=== PATIENT | female | born 1985 | race Caucasian/White ===

== ENCOUNTER 2017-11-12 17:34 | Emergency (ER) | payer OTHER, MEDICAID ==
[~2017-11-12] VITALS: Ht 172.7 cm; Wt 126.5 kg
[~2017-11-12 17:34] MED LIST: AMOXICILLIN875 MG PO; BACTRIM DS TAB1 EACH PO; BENTYL 20 MG TA20 M1 PO; CELEXA; DOXYCYCLINE 10100 M1 PO; HYDROCODON-ACE1 EAC7 PO; IBUPROFEN 800800 M1 PO; IBUPROFEN 800800 MG PO; KEFLEX500 MG PO; NAPROSYN500 MG; NAPROSYN500 MG PO; NOHOMEMEDICATIONS; NORCO 5-325 TA1 EACH PO; PENICILLIN VK250 MG PO; PENICILLIN VK500 M1; PENICILLIN VK500 M1 PO; PROAIR HFA8.5 GM; SYMBICORT160 MCG/4.; TESSALON200 MG PO; ULTRAM 50MG TAB50 MG; ULTRAM 50MG TAB50 MG PO; VENTOLIN HFA INH8 GM IH; XANAX 0.25 MG0.25 MG PO; XANAX 0.5 MG0.5 M1 PO; ZOFRAN 4 MG ORAL4 MG PO; ZPAK PO
[2017-11-12 18:37] LABS: INFLUENZA A ANTIGEN None Detected (None Detect); INFLUENZA B ANTIGEN None Detected (None Detect)
[2017-11-12 18:40] LABS: ABSOLUTE LYMPHOCYTES 1.6 thou/uL (0.8-5.3); ABSOLUTE MONOCYTES 0.8 thou/uL (0.0-1.2); ABSOLUTE NEUTROPHILS 5.9 thou/uL (1.6-8.1); BASOPHILS 0.6 %; EOSINOPHILS 0.1 %; HEMATOCRIT 43.9 % (37.0-47.0); HEMOGLOBIN 14.9 gm/dL (12.0-15.0); LYMPHOCYTES 19.6 %; MCH 31.7 pg (26.0-34.0); MCHC 33.9 g/dL (28.0-37.0); MCV 93.5 fL (80.0-100.0); MONOCYTES 9.9 %; MPV 9.5 fl. (7.2-11.1); NUCLEATED RBCS 0 /100WBC; PLATELET COUNT* 174 thou/uL (150-400); POLYS 69.8 %; RBC 4.69 mil/uL (4.20-5.00); RDW-CV 13.2 % (10.5-14.5); WBC 8.4 thou/uL (4.0-11.0)
[2017-11-12 18:50] LABS: CALCIUM 8.5 mg/dL (8.5-10.1); CREATININE 0.8 mg/dL (0.6-1.3); POTASSIUM 3.3 mmol/L (3.5-5.1)
[2017-11-12 18:55] LABS: ALBUMIN 3.5 g/dL (3.4-5.0); TOTAL BILIRUBIN 0.5 mg/dL (<0.1-1.0); TOTAL PROTEIN 7.4 g/dL (6.4-8.2)
[2017-11-12] MEDS ORDERED: PROAIR HFA8.5 GM INH (19:01)
[2017-11-12] MEDS ORDERED: ZPAK PO (19:01)
[2017-11-12] MEDS ORDERED: IBUPROFEN 800800 M1 PO (19:01)
[2017-11-12] MEDS ORDERED: PROMETHAZINE V473 ML PO (19:01)
[2017-11-12] MEDS ORDERED: TESSALON PERLE100 MG PO (19:01)
[2017-11-12 19:58] VITALS: BP 133/60
== END 2017-11-12 19:21 | disposition home or self-care (01) ==
LOC: M.ERS 17:34
PROVIDERS: Physician Assistant
DX: J20.9 Acute bronchitis, unspecified (principal); J44.9 Chronic obstructive pulmonary disease, unspecified; F17.210 Nicotine dependence, cigarettes, uncomplicated